=== PATIENT | male | born 1980 | race Hispanic/Latino ===

== ENCOUNTER 2019-06-30 09:36 | Emergency (ER) | payer SELFPAY ==
[2019-06-30 10:53] LABS: #Eosinphils 0.3 thou/uL (0.0-0.7); #Lymphocytes 1.4 thou/uL (1.20-3.40); #Monocytes 0.7 thou/uL (0.11-0.59); #Neutrophils 7.3 thou/uL (1.40-6.50); %Basophils 0.3 % (0.0-1.0); %Eosinophils 2.8 % (0.0-10.0); %Lymphocytes 14.8 % (21.0-51.0); %Neutrophils 75.1 % (42.0-75.0); Hemoglobin 14.7 g/dL (14.0-18.0); Mean Corpuscular Hemoglobin 27.6 pg (27.0-31.0); Mean Corpuscular Volume 83.6 fL (78.0-98.0); Mean Platelet Volume 7.2 fL (7.4-10.4); Platelet Count 339 thou/uL (130-400); RBC Distribution Width 11.8 % (11.5-14.5); Red Blood Cell (RBC) Count 5.32 mill/uL (4.70-6.10); White Blood Cell (WBC) Count 9.7 thou/uL (4.8-10.8)
[2019-06-30] MEDS ORDERED: Piperacillin/Tazobactam 4.5 GM VIAL ONE (10:53)
[2019-06-30] MEDS ORDERED: Dexamethasone 10 MG/ML VIAL ONE (10:53)
[2019-06-30 11:16] LABS: ALT (SGPT) 26 U/L (8-55); AST (SGOT) 19 U/L (5-34); Albumin 3.9 g/dL (3.5-5.0); Alkaline Phosphatase 86 U/L (40-110); Anion Gap 13 mmol/L (10-20); BUN (Urea Nitrogen) 8 mg/dL (8.9-20.6); Bilirubin, Total 0.3 mg/dL (0.2-1.2); Calc. Creatinine Clearance 0 mL/min (70-130); Calcium 9.3 mg/dL (7.8-10.44); Carbon Dioxide 28 mmol/L (22-29); Chloride 101 mmol/L (98-107); Estimated GFR-MDRD Greater than 90; Globulin 4.1 g/dL (2.4-3.5); Glucose 97 mg/dL (70-105); Potassium 4.2 mmol/L (3.5-5.1); Sodium 138 mmol/L (136-145)
--- NOTE | 2019-06-30 11:56 | CT ---
EXAM: CT neck with contrast HISTORY: Tongue swelling with throat pain COMPARISON: None TECHNIQUE: Multiple contiguous axial images were obtained and a CT of the neck with contrast. Sagitta l and coronal reformats were performed. FINDINGS: There is moderate to severe hypertrophy of the palatine tonsils causing narrowing of the airway. Ther e is a 1.5 cm hypodense collection in the left palatine tonsil consistent with a peritonsillar abscess. There is also mild hypertrophy of the adenoid tonsils. No mucosal abnormalities seen in the subglottic region. The parapharyngeal spaces are symmetric. Mildly reactive bilateral cervical lymph nodes are seen. The salivary glands are symmetric without focal abnormality. The thyroid is unremarkable. No osseous abnormality is seen in the cervical spine. The visualized intracranial structures are unremarkable. The lung apices are unremarkable. IMPRESSION: Left peritonsillar abscess
[2019-06-30] MEDS ORDERED: Iopamidol-370 76% 500 ML 1 ML ONE (12:50)
[2019-06-30] MEDS ORDERED: Benzocaine 20% Spray 60 ML CAN ONE (13:26)
[2019-06-30] MEDS ORDERED: Lidocaine 1% w/Epinephrine 1:100K 20 ML VIAL ONE (13:26)
[2019-06-30] MEDS ORDERED: Amoxicillin/Potassium Clav 875 MG TAB ONE (14:56)
--- NOTE | 2019-06-30 21:49 | CON ---
DATE OF CONSULTATION: 06/30/2019 REASON FOR CONSULTATION: Peritonsillar abscess. CONSULTING PHYSICIAN: Dr. Leggett. HISTORY OF PRESENT ILLNESS: Mr. Burnette is a 38-year-old [place] male who has had a 2-week history of progressively worsening sore throat, now has significant difficulty with dysphagia and pain primarily on the left side of the throat, was seen in Urgent Care yesterday and treated with antibiotics and steroid shots, but continued to worsen and presented to the ER today for further evaluation. In the ER today, CT scan showed an appeared to be an abscess cavity on the left superior pole of the tonsil and I was asked to evaluate and treat. No prior history of any significant tonsil problems or peritonsillar abscess. He does have some symptoms suggestive of obstructive sleep apnea. No other complaints. PAST MEDICAL HISTORY: Negative. PAST SURGICAL HISTORY: Negative. ALLERGIES: NO KNOWN ALLERGIES. PHYSICAL EXAMINATION: GENERAL: Obese [place] male, in moderate distress. HEENT: Head is normocephalic, atraumatic. Eyes; pupils are equal, round, reactive to light. Extraocular movements intact. Ears; tympanic membranes are intact, mobile and clear. Nose, the mucosa is pink and healthy. Septum is midline. No apparent drainage noted. Oral cavity, oropharynx shows moderate trismus. Does have some swelling and erythema of the left soft palate and anterior tonsillar pillar, the tonsil being pushed to the midline slightly. No evidence of any exudate is noted. NECK: Does not show any significant lymphadenopathy or tenderness. LUNGS: Clear to auscultation. HEART: Rate and rhythm regular without murmur or gallop. IMAGING STUDIES: Review of CT scan does show what appears to be a thick-walled abscess cavity on the left superior pole of the tonsil area, the area that is consistent with the swelling seen on exam. No other problems were found. PROCEDURE NOTE: After getting the patient's verbal consent, I sprayed the throat with Hurricaine spray and after getting adequate topical anesthesia, injected the soft palate in the area to be incised with 1% lidocaine, 1:100,000 epinephrine. After gaining adequate vasoconstriction and anesthesia, a 15 blade knife was used to make an incision in the soft palate, anterior tonsillar pillar, over the area of concern and then using a tonsil clamp, I probed the area to try and find the abscess cavity. After probing in multiple directions and as deep as possible, I did not find any pocket of pus that drained after looking around as much as possible, opted to stop and the patient tolerated the procedure well. IMPRESSION: Peritonsillar cellulitis on the left. PLAN: Treat him with Augmentin, prednisone, and pain medications and made sure to increase hydration. He will return to clinic in a week for re-evaluation. Certainly if he gets worse, we will evaluate further sooner. Job ID: [id number]
== END 2019-06-30 15:14 | disposition home or self-care (01) ==
LOC: ERS 09:36
DX: J36 Peritonsillar abscess (principal); I10 Essential (primary) hypertension
CPT/HCPCS: 70492; 80053; 83605; 85025; 87081; 87430; 87804; 96361; 96365; 96375; J1100; J2543; Q9967